=== PATIENT | male | born 1965 | race African-American/Black ===

== ENCOUNTER 2017-11-02 10:43 | Emergency (ER) | payer SELFPAY ==
[~2017-11-02 10:43] MED LIST: Z.0.NO CURRENT MEDS
[2017-11-02] MEDS ORDERED: AMIODARONE HCL 150 MG/3 ML VIAL IV ONE (10:44)
[2017-11-02] MEDS ORDERED: DOPamine INJ PREMIX 500 ML IV ONE (10:44)
[2017-11-02] MEDS ORDERED: DEXTROSE 50% IN WATER 50 ML SYRINGE IV ONE (10:44)
[2017-11-02] MEDS ORDERED: EPINEPHrine HCL (1:10,000) 1 MG/10 ML SYRINGE IV ONE ×3 (10:44)
[2017-11-02] MEDS ORDERED: MAGNESIUM SULFATE 40 MEQ/10 ML VIAL IV ONE ×2 (10:44)
[2017-11-02] MEDS ORDERED: SODIUM BICARBONATE 8.4% INJ 50 MEQ/50 ML SYR IV ONE (10:44)
[2017-11-02] MEDS ORDERED: CALCIUM CHLORIDE 10% SOLN 1 GRAM/10 ML SYR IV ONE (10:44)
[2017-11-02 10:50] VITALS: BP 165/95
[2017-11-02 11:41] VITALS: O2SAT 70
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
== END 2017-11-02 11:30 | disposition expired ==
LOC: NEPE 10:43 → NEPI 11:30
DX: I46.9 Cardiac arrest, cause unspecified (principal); I21.9 Acute myocardial infarction, unspecified; I10 Essential (primary) hypertension
CPT/HCPCS: 31500; 36556; 82435; 82565; 82947; 84132; 84295; 84520; 92950; 99291; J0171; J0282; J1265; J3475